=== PATIENT | female | born 1965 | race Caucasian/White ===

== ENCOUNTER → 2018-07-06 11:11 | Outpatient (CLI) | payer MEDICARE, SELFPAY ==
[2018-07-06 12:34] LABS: Alanine Aminotransferase 31 U/L (12-78); Albumin Level 3.8 gm/dL (3.4-5.0); Albumin/Globulin Ratio 1.1 (1.1-1.8); Alkaline Phosphatase 108 U/L (46-116); Anion Gap 14.4 mEq/L (5-15); Aspartate Amino Transferase 15 U/L (15-37); Bilirubin,Total 0.4 mg/dL (0.2-1.0); Blood Urea Nitrogen 16 mg/dL (7-18); Calcium 9.2 mg/dL (8.5-10.1); Carbon Dioxide 27 mmol/L (21.0-32.0); Chloride 101 mmol/L (98-107); Chol/HDL Ratio 3.3 (1-3.5); Cholesterol 248 mg/dL (140-200); Creatinine,Serum 0.86 mg/dL (0.55-1.02); Estimated Glomerular Filt Rate 69 ml/min (>60); GFR (African American) 83 ML/MIN (>60); Globulin 3.5 gm/dl (1.3-3.2); Glucose 105 mg/dL (74-106); HDL Cholesterol 75 mg/dL (29-89); LDL Cholesterol 132 mg/dL (0-130); Potassium 4.4 mmoL/L (3.5-5.1); Sodium 138 mmol/L (136-145); Total Protein,Serum 7.3 gm/dL (6.4-8.2); Triglycerides 204 mg/dL (30-200); VLDL Cholesterol 41 mg/dL (0-40)
== END ==
PROVIDERS: Visit Provider Nurse Practitioner Family
DX: Z00.00 Encounter for general adult medical examination without abnormal findings (principal)
CPT/HCPCS: 36415; 80053; 80061

== ENCOUNTER 2018-09-24 15:40 | Observation (INO) ==
--- NOTE | 2018-09-24 15:56 | Emergency Department Note ---
ED Disposition Clinical Impression: Acute appendicitis Qualifiers: Acute appendicitis type: with localized peritonitis Appendicitis gangrene presence: without gangrene Appendicitis perforation presence: without perforation Appendicitis abscess presence: without abscess Qualified Code(s): K35.30 - Acute appendicitis with localized peritonitis, without perforation or gangrene Disposition: Admitted as Observation Condition on Discharge: Fair Referrals: Zeny Rojo APRN [Primary Care Provider] - - Critical Care Critical Care Time: No Attestation: On , the high probability of a clinically significant, sudden or life threatening deterioration of the following system(s) required my full and direct attention, intervention and personal management. The time I documented below is in addition to time spent performing reported procedures but includes the following listed in this critical care notation. Medical Decision Making - Cain Inquiry Pt receiving controlled substance: Yes Cain was queried for this patient: Yes Reference #:: [id number] Risks and benefits of using a controlled substance: were not discussed with pt by me Comment: 17 rxs. last rxs 120 norco 09/10 and 360 gabapentin 09/15 Vital Signs: 09/24/18 15:44 09/24/18 16:10 09/24/18 16:30 Temperature 98.0 F Temperature Source Oral Pulse Rate [Right Radial] 112 H 87 84 Respiratory Rate 20 18 20 Blood Pressure [Right Radial Artery] 138/81 143/87 H 134/82 Blood Pressure Mean [Right Radial Artery] 100 105 99 Blood Pressure Source [Right Radial Artery] Automatic Cuff Automatic Cuff Au tomatic Cuff Blood Pressure Position [Right Radial Artery] Sitting Sitting Sitting 02 Sat by Pulse Oximetry 97 97 96 Oxygen Delivery Method Room Air Room Air Room Air 09/24/18 17:00 09/24/18 17:30 09/24/18 18:00 Temperature Temperature Source Pulse Rate [Right Radial] 91 H 79 88 Respiratory Rate 18 18 20 Blood Pressure [Right Radial Artery] 146/71 H 146/93 H 134/84 Blood Pressure Mean [Right Radial Artery] 96 110 100 Blood Pressure Source [Right Radial Artery] Automatic Cuff Automatic Cuff Automatic Cuff Blood Pressure Position [Right Radial Artery] Sitting Sitting Sitting 02 Sat by Pulse Oximetry 92 L 95 96 Oxygen Delivery Method Room Air Room Air Room Air - Lab Data Lab Results 09/24/18 15:57: WBC 13.2 H, RBC 4.82, Hgb 14.2, Hct 42.4, MCV 87.9, MCH 29.4, MCHC 33.5, RDW 13.2, Plt Count 304, MPV 6.9 L, Neut % (Auto) 85.6 H, Lymph % (Auto) 10.0, [place] % (Auto) 3.3, Eos % (Auto) 0.8, Baso % (Auto) 0.3, Neut # (Auto) 11.3 H, Lymph # (Auto) 1.3, [place] # (Auto) 0.4, Eos # (Auto) 0.1, Baso # (Auto) 0.0, Total Counted 100, Neutrophils % (Manual) 87 H, Lymphocytes % (Manual) 8 L, Monocytes % (Manual) 3, Eosinophils % (Manual) 2, Platelet Estimate Normal, RBC Morphology Normal 09/24/18 15:57: Sodium 137, Potassium 3.3 L, Chloride 98, Carbon Dioxide 27, Anion Gap 15.3 H, BUN 15, Creatinine 0.88, Estimated Creat Clear 93, Estimated GFR 67, Est GFR ( Amer) 81, Glucose 119 H, Calcium 9.6, Total Bilirubin 0.4, AST 19, ALT 36, Alkaline Phosphatase 128 H, Troponin I < 0.02, Total Protein 8.4 H, Albumin 4.0, Globulin 4.4 H, Albumin/Globulin Ratio 0.9 L 09/24/18 15:57: Lipase 91 09/24/18 15:59: Urine Color Yellow, Urine Appearance Clear, Urine pH 6.5, Ur Specific [place] 1.020, Urine Protein Negative, Urine Glucose (UA) Negative, Urine Ketones Negative, Urine Blood Negative, Urine Nitrate Negative, Urine Bilirubin Negative, Urine Urobilinogen 0.2, Ur Leukocyte Esterase Negative, Urine RBC None, Urine WBC Occasional, Ur Squamous Epith Cells Occasional, Urine Bacteria Trace Result diagrams: 09/24/18 15:57 09/24/18 15:57 Orders (Tests/Meds): ED MEDICATIONS Generic Name Dose Route Start Last Admin Trade Name Freq PRN Reason Stop Dose Admin Sodium Chloride 10 ml 09/24/18 15:49 Saline Flush 10ml Syringe IV 10/24/18 15:48 NEEDED PRN Maintain IV Site Discontinued Medications Generic Name Dose Route Start Last Admin Trade Name Freq PRN Reason Stop Dose Admin Famotidine 20 mg 09/24/18 16:46 09/24/18 16:50 Pepcid 20mg/2ml Vial IV 09/24/18 16:47 20 mg ONCE ONE Administration Ampicillin Sodium/Sulbactam 100 mls @ 200 mls/hr 09/24/18 18:30 Sodium 3 gm/ Sodium Chloride IV 09/24/18 18:31 ONCE ONE Protocol Ioversol 75 ml 09/24/18 17:26 09/24/18 17:27 Rad-Optiray 350 100ml Vial IV 09/24/18 17:27 75 ml ONCE ONE Administration Metoclopramide HCl 10 mg 09/24/18 16:46 09/24/18 16:50 Reglan 10mg/2ml Vial IVP 09/24/18 16:47 10 mg ONCE ONE Administration Morphine Sulfate 4 mg 09/24/18 16:46 09/24/18 16:50 Morphine 4mg/Ml Syringe IV 09/24/18 16:47 4 mg ONCE ONE Administration Ondansetron HCl 4 mg 09/24/18 16:46 09/24/18 16:50 Zofran 4mg/2ml Vial IV 09/24/18 16:47 4 mg ONCE ONE Administration Sodium Chloride 10 ml 09/24/18 17:26 09/24/18 17:27 Rad-Saline Flush 10ml Syringe IV 09/24/18 17:27 10 ml ONCE ONE Administration - CT Data CT Scan: Abdomen, Pelvis Time Received: 17:[address] Reviewed: Yes: I have viewed the radiologist's interpretation Findings Narrative: Acute appendicitis - ECG Data Tracing #1 EKG interpreted by Florentino Lowe MD: Rhythm: sinus Rate: 95 [place]: normal Ectopy: none Conduction: normal ST Segment Changes: none T Wave Changes: Nonspecific Q Waves: none No evidence of acute ischemia or injury Baseline artifact present, but I consider the EKG adequate for accurate interpretation. - Physician Consults Physician Consulted: Morgan Time: 18:04 Reason -: Surgical Eval/Care Comment/Response: Requests that the dye house supervisor call in the OR team. - Reevaluation(s) Time: 18:00 Reevaluation #1: Still complains of epigastric pain, but on reexamination she is much more tender in the right lower quadrant and epigastrium and has a positive Rovsing sign. General Adult HPI - General Stated complaint: stomach pains Time Seen by Provider: 09/24/18 15:56 - History of Present Illness HPI narrative: Constant mid epigastric pain since this morning. Made worse by eating. Last oral intake was at 2 PM, Triscuits, and orange "Cutie", some cheese. Pain made worse after eating. No radiation. Nausea, but no vomiting or diarrhea. No fever. No prior similar pain. No history of any abdominal surgeries. Nondrinker. She is not on any anti-inflammatories. Took some Gas-X without relief. - Related Data Home Medications Medication Instructions Recorded Confirmed Gabapentin 600 mg PO TID 09/24/18 09/24/18 Hydrocod/Acet 5/325 mg [[place] 1 tab PO NEEDED PRN 09/24/18 09/24/18 5/325mg tablet] Ropinirole HCl 1 mg PO HS 09/24/18 09/24/18 Allergies Allergy/AdvReac Type Severity Reaction Status Date / Time No Known Allergies Allergy Unverified 07/14/17 14:[address] [facility] History - Hepatitis A Screen Attestation statement:: This patient has been screened for Hepatitis A risk factors. I have reviewed the patient's past medical history: Yes ROS Obtained: Yes All systems reviewed & no additional complaints - Constitutional Constitutional: Denies fever(s) - Cardiovascular Cardiovascular: Denies chest pain - Respiratory Respiratory: No dyspnea - Gastrointestinal Gastrointestingal: Reports: abdominal pain, nausea. Denies: constipation, diarrhea, vomiting - Genitourinary Female Genitourinary: Denies difficulty voiding Physical Exam - General General appearance: alert, other (appears uncomfortable) - Head Head exam: atraumatic, normocephalic - Eye Eye exam: Present: normal appearance, PERRL, EOMI - ENT ENT exam: Present: mucous membranes moist - Neck Neck exam: Present: normal inspection, trachea midline - Chest Chest inspection: Present: normal inspection, symmetric chest wall rise - Respiratory Respiratory exam: Present: normal lung sounds bilaterally. Absent: respiratory distress - Cardiovascular Cardiovascular exam: Present: normal rhythm, tachycardia, normal heart sounds - Abdominal Exam Abdominal exam: Present: soft, tenderness. Absent: distention, guarding, rebound, rigidity Abdominal tenderness: Present: epigastrium - Extremities Exam Extremities exam: Present: normal inspection - Neurological Exam Neurological exam: Present: alert, oriented X3 - Psychiatric Psychiatric exam: Present: normal affect, normal mood - Skin Skin exam: Present: warm, dry
[2018-09-24 16:00] LABS: Microscopic, Urine URINE MICROSCOPIC (MICROSCOPIC)
[2018-09-24 16:02] LABS: Appearance,Urine CLEAR (Clear); Bilirubin,Urine Negative (Negative); Blood, Urine Negative (Negative); Color,Urine YELLOW (Yellow); Glucose,Urine (UA) Negative (Negative); Ketones,Urine Negative (Negative); Leukocyte Esterase,Urine Negative (Negative); PH,Urine 6.5 (5.0-8.5); Protein,Urine Negative (Negative); Urobilinogen,Urine 0.2 EU/dl (0.2)
[2018-09-24 16:06] LABS: Basophils % 0.3 % (0.1-2.0); Eosinophils # 0.1 K/mm3 (0.0-0.4); Eosinophils % 0.8 % (0.1-12.0); Hematocrit 42.4 % (37.0-47.0); Hemoglobin 14.2 g/dL (12.2-16.2); Lymphocytes # 1.3 K/mm3 (0.7-4.5); Mean Corpuscular HGB Conc 33.5 g/dL (31.8-35.4); Mean Corpuscular Hemoglobin 29.4 pg (27.0-31.2); Mean Corpuscular Volume 87.9 fl (81-99); Mean Platelet Volume 6.9 fl (7.4-10.4); Monocytes # 0.4 K/mm3 (0.1-1.0); Monocytes % 3.3 % (1.7-9.3); Neutrophils # 11.3 K/mm3 (1.8-7.8); Neutrophils % 85.6 % (37.0-80.0); Platelet Count 304 K/mm3 (142-424); Red Blood Count 4.82 M/mm3 (4.20-5.40); Red Cell Distribution Width 13.2 % (11.5-17.5); White Blood Count 13.2 K/mm3 (4.8-10.8)
[2018-09-24 16:25] LABS: Eosinophils % 2 % (0-3); Lymphocytes % 8 % (10-50); Monocytes % 3 % (2-9); Neutrophils % 87 % (42-76); RBC Morphology Normal; Total Cells Counted 100
[2018-09-24 16:26] LABS: WBC,Urine Occasional #/hpf (0-3)
[2018-09-24 16:27] LABS: Bacteria,Urine Trace /lpf; Squamous Epithelial Cell,Urine Occasional #/hpf (0-5)
[2018-09-24 16:30] LABS: Alanine Aminotransferase 36 U/L (12-78); Albumin/Globulin Ratio 0.9 (1.1-1.8); Alkaline Phosphatase 128 U/L (46-116); Anion Gap 15.3 mEq/L (5-15); Aspartate Amino Transferase 19 U/L (15-37); Bilirubin,Total 0.4 mg/dL (0.2-1.0); Blood Urea Nitrogen 15 mg/dL (7-18); Calcium 9.6 mg/dL (8.5-10.1); Carbon Dioxide 27 mmol/L (21.0-32.0); Chloride 98 mmol/L (98-107); Globulin 4.4 gm/dl (1.3-3.2); Glucose 119 mg/dL (74-106); Potassium 3.3 mmoL/L (3.5-5.1); Sodium 137 mmol/L (136-145); Total Protein,Serum 8.4 gm/dL (6.4-8.2)
--- NOTE | 2018-09-24 19:04 | Progress Note ---
[facility] Anesthesia Checklist - Patient Identification Patient Identification: Arm Band, Verbal (Name & ) - Structural Data Admitted From: Emergency Dept Planned Operative Procedure/s: Laparoscopic appendectomy Consent for Planned Operative Procedure(s) Verified: Yes Verified Documents: Surgical Consent, History and Physical - NPO Status Verified Time NPO: 00:00 - Chart Verification Results Verified: CBC, BMP - Additional verifications Anesthesia Reactions: No - Airway Assessment C-Spine Mobility Assessed: Yes TMJ Mobility Assessed: Yes Dentition: Good Dentition (Missing) - Neurological Assessment Level of Consciousness: Awake Hx Seizures: No Numbness or tingling in extremities: No - Anesthesia Plan Anesthesia Risk discussed: Yes Anesthesia Plan: Verified ASA Class: II (Emergent) Anesthesia Type: General [facility] History I have reviewed the patient's past medical history: Yes Medical History: Reports:: Anxiety, Depression, Hypertension Denies:: Diabetes Mellitus Type 1, Diabetes Mellitus Type 2, Seizures Other Medical History: Denies: Blood Transfusion Reaction Comment:: Obesity Laterality Cases: Right: Total Knee Replacement Other Surgeries: Yes: Other (Back sx x2) Amputation: No Fractures: No - *Social History Smoking Status: Never smoker Alcohol Intake: never *Occupational Status:: unemployed *Travel in the last 8 weeks: None - Psychiatric History Expresses thoughts of harming self/others: None Suicide Plan Description: No Plan Family Hx:: Other (NA)
--- NOTE | 2018-09-24 20:23 | Operative Note ---
Date of procedure: 09/24/18 Pre-op Diagnosis:: Appendicitis Post-op Diagnosis:: Suppurative appendicitis Procedure performed:: Laparoscopic appendectomy Surgeon:: Austin Mora MD [employer](s):: Linda Anesthesia: GETJenna Estimated blood loss (mL): 15 Operative findings:: Severe appendicitis with suppurative changes. No definitive perforation noted. Operative note:: After informed consent was obtained the patient was taken to the operating room and placed in the supine position. General anesthesia was induced and her abdomen was prepped and draped in a sterile fashion. After infiltration with local anesthetic an infraumbilical incision was made. A Veress needle was placed in position. The abdomen was insufflated. A 12 mm optical trocar was placed in position. Under direct visualization a 5 mm trocar was placed in the suprapubic position. An additional 5 mm trocar was placed in the left lower quadrant. The appendix was carefully elevated. Severe inflammatory changes were noted. The appendix was suppurative; however, no definitive perforation was noted. A window was made at the base of the appendix. Laparoscopic BRIDGET stapler was utilized to transect the appendix at the base. The mesoappendix was taken with harmonic wilman. The appendix was placed in a retrieval bag. It was removed through the infraumbilical trocar site. Cloudy fluid was evacuated from the pelvis and right lower quadrant. No obvious formed abscess was seen. The entire region was thoroughly irrigated. Fascia at the infraumbilical trocar site was reapproximated with interrupted 0 Ethibond. Pneumoperitoneum was released as the remaining trocars were removed. All wounds were irrigated and skin was closed with 4-0 Monocryl in a sub-particular fashion. Steri-Strips were applied. The patient's anesthetic agents were reversed and she was extubated prior to being taken to PACU. Condition: stable Disposition: PACU Specimens:: Appendix Complications:: No immediate
--- NOTE | 2018-09-24 20:37 | Progress Note ---
[facility] Anesthesia Record Part II Discharge Time: 21:05 Destination: Medical Surgical Department PACU nurse assessment reviewed?: Yes Patient Condition:: Good Anesthesia Complications:: None Swallowing reflex intact?: Yes Cyanosis?: No
--- NOTE | 2018-09-24 20:37 | Progress Note ---
[facility] Anesthesia Record Part I Intake, IV Amount: 500 Estimated blood loss (mL): 15 Urine output (mL): 0 Blood Products used (#): none Blood Pressure: 160/95 SaO2: 98 Pulse Rate: 115 Respiratory Rate: 14 Temperature: 97.7 F Patient is:: Awake, Stable Stable to PACU at:: 20:35
--- NOTE | 2018-09-25 06:28 | Progress Note ---
Subjective Patient reports: other (resting) Exam Vital signs and Labs for Last 24 Hours: Temp Pulse Resp BP Pulse Ox 98.4 F 84 18 118/69 95 09/25/18 03:55 09/25/18 03:55 09/25/18 03:55 09/25/18 03:55 09/25/18 03:55 Laboratory Results - last 24 hr 09/24/18 15:57: WBC 13.2 H, RBC 4.82, Hgb 14.2, Hct 42.4, MCV 87.9, MCH 29.4, MCHC 33.5, RDW 13.2, Plt Count 304, MPV 6.9 L, Neut % (Auto) 85.6 H, Lymph % ( Auto) 10.0, [place] % (Auto) 3.3, Eos % (Auto) 0.8, Baso % (Auto) 0.3, Neut # (Auto) 11.3 H, Lymph # (Auto) 1.3, [place] # (Auto) 0.4, Eos # (Auto) 0.1, Baso # (Auto) 0.0, Total Counted 100, Neutrophils % (Manual) 87 H, Lymphocytes % (Manual) 8 L, Monocytes % (Manual) 3, Eosinophils % (Manual) 2, Platelet Estimate Normal, RBC Morphology Normal 09/24/18 15:57: Sodium 137, Potassium 3.3 L, Chloride 98, Carbon Dioxide 27, Anion Gap 15.3 H, BUN 15, Creatinine 0.88, Estimated Creat Clear 93, Estimated GFR 67, Est GFR ( Amer) 81, Glucose 119 H, Calcium 9.6, Total Bilirubin 0.4, AST 19, ALT 36, Alkaline Phosphatase 128 H, Troponin I < 0.02, Total Protein 8.4 H, Albumin 4.0, Globulin 4.4 H, Albumin/Globulin Ratio 0.9 L 09/24/18 15:57: Lipase 91 09/24/18 15:59: Urine Color Yellow, Urine Appearance Clear, Urine pH 6.5, Ur Specific [place] 1.020, Urine Protein Negative, Urine Glucose (UA) Negative, Urine Ketones Negative, Urine Blood Negative, Urine Nitrate Negative, Urine Bilirubin Negative, Urine Urobilinogen 0.2, Ur Leukocyte Esterase Negative, Urine RBC None, Urine WBC Occasional, Ur Squamous Epith Cells Occasional, Urine Bacteria Trace 09/24/18 19:30: Urine Color Yellow, Urine Appearance Clear, Urine pH 6.0, Ur Specific [place] 1.010, Urine Protein Negative, Urine Glucose (UA) Negative, Urine Ketones Negative, Urine Blood Negative, Urine Nitrate Negative, Urine Bilirubin Negative, Urine Urobilinogen 0.2, Ur Leukocyte Esterase Negative, Urine RBC None, Urine WBC Occasional, Ur Squamous Epith Cells Occasional, Urine Bacteria Trace I & O for Last 24 hours: Intake & Output 09/22/18 09/23/18 09/24/18 09/25/18 11:59 11:59 11:59 11:59 Intake Total 740 / 740 Balance 740 / 740 Weight 184 lb 2 oz - Constitutional no acute distress - *Routine Respiratory Exam Absent: respiratory distress - *Routine Abdominal Exam Present: soft (dressing intact. no cellulitis.) Progress Note: A&P (1) Suppurative appendicitis Status: Acute Assessment and plan: Overall, doing well s/p laparoscopic appendectomy. Slowly advance diet Follow-up a.m. labs Increase ambulation Continue IV antibiotics Current Visit: Yes
[2018-09-25 07:35] LABS: Basophils % 0.1 % (0.1-2.0); Hematocrit 33.2 % (37.0-47.0); Lymphocytes # 0.6 K/mm3 (0.7-4.5); Lymphocytes % 8.3 % (10-50); Mean Corpuscular HGB Conc 32.9 g/dL (31.8-35.4); Mean Corpuscular Hemoglobin 29.2 pg (27.0-31.2); Mean Corpuscular Volume 88.9 fl (81-99); Mean Platelet Volume 7.4 fl (7.4-10.4); Monocytes # 0.2 K/mm3 (0.1-1.0); Monocytes % 2.8 % (1.7-9.3); Neutrophils # 6.6 K/mm3 (1.8-7.8); Neutrophils % 88.8 % (37.0-80.0); Platelet Count 207 K/mm3 (142-424); Red Blood Count 3.73 M/mm3 (4.20-5.40); Red Cell Distribution Width 13.1 % (11.5-17.5); White Blood Count 7.4 K/mm3 (4.8-10.8)
[2018-09-25 07:37] LABS: Anion Gap 11.8 mEq/L (5-15); Calcium 8.7 mg/dL (8.5-10.1); Potassium 3.8 mmoL/L (3.5-5.1)
[2018-09-25 07:44] LABS: Hemoglobin 10.9 g/dL (12.2-16.2)
--- NOTE | 2018-09-25 09:08 | Pharmacy Consult Notes ---
[facility] Pharmacy VTE Monitoring - Patient Demographics Admission date: 09/24/18 Report Date: 09/25/18 Time: 09:08 Allergies/Adverse Reactions: Patient Allergies amoxicillin [From Augmentin] Allergy (Mild, Verified 09/25/18 04:44) Rash clavulanic acid [From Augmentin] Allergy (Mild, Verified 09/25/18 04:44) Rash Height: 1.63 m Weight: 83.518 kg Patient Problems: Current Active Problems Acute appendicitis (Acute) Suppurative appendicitis (Acute) - VTE Risk Labs: VTE Related Lab Results Hgb 10.9 g/dL (12.2-16.2) L D 09/25/18 06:50 Hct 33.2 % (37.0-47.0) L 09/25/18 06:50 Plt Count 207 K/mm3 (142-424) D 09/25/18 06:50 BUN 10 mg/dL (7-18) D 09/25/18 06:50 Creatinine 0.83 mg/dL (0.55-1.02) 09/25/18 06:50 Estimated Creat Clear 101 mL/min (50-200) 09/25/18 06:50 Was VTE Risk Assessment Performed: Yes VTE Score: 4 VTE Risk Level: Low Risk - Prophylaxis VTE Prophylaxis Ordered?: Yes Types of VTE Prophylaxis: IPCS Thigh High Location of Applied Device: Bilateral Lower Extremeties
[2018-09-25 10:10] LABS: Lymphocytes % 6 % (10-50); Monocytes % 1 % (2-9); Neutrophils % 93 % (42-76); RBC Morphology Normal; Total Cells Counted 100
[2018-09-26 07:10] LABS: Basophils % 0.4 % (0.1-2.0); Eosinophils % 0.8 % (0.1-12.0); Hematocrit 31.2 % (37.0-47.0); Hemoglobin 10.2 g/dL (12.2-16.2); Lymphocytes # 1.9 K/mm3 (0.7-4.5); Lymphocytes % 42.8 % (10-50); Mean Corpuscular HGB Conc 32.5 g/dL (31.8-35.4); Mean Corpuscular Hemoglobin 29.3 pg (27.0-31.2); Mean Corpuscular Volume 90.1 fl (81-99); Mean Platelet Volume 7.4 fl (7.4-10.4); Monocytes # 0.2 K/mm3 (0.1-1.0); Monocytes % 5.3 % (1.7-9.3); Neutrophils # 2.2 K/mm3 (1.8-7.8); Neutrophils % 50.6 % (37.0-80.0); Platelet Count 211 K/mm3 (142-424); Red Blood Count 3.47 M/mm3 (4.20-5.40); Red Cell Distribution Width 13.4 % (11.5-17.5); White Blood Count 4.4 K/mm3 (4.8-10.8)
--- NOTE | 2018-09-26 08:37 | Progress Note ---
Subjective Patient reports: feels better Exam Vital signs and Labs for Last 24 Hours: Temp Pulse Resp BP Pulse Ox 98.8 F 96 H 19 140/88 96 09/26/18 08:00 09/26/18 08:00 09/26/18 08:00 09/26/18 08:00 09/26/18 08:00 Laboratory Results - last 24 hr 09/25/18 06:50: Total Counted 100, Neutrophils % (Manual) 93 H, Lymphocytes % (Manual) 6 L, Monocytes % (Manual) 1 L, Platelet Estimate Normal, RBC Morphology Normal 09/26/18 06:40: WBC 4.4 L D, RBC 3.47 L, Hgb 10.2 L, Hct 31.2 L, MCV 90.1, MCH 29.3, MCHC 32.5, RDW 13.4, Plt Count 211, MPV 7.4, Neut % (Auto) 50.6, Lymph % (Auto) 42.8, [place] % (Auto) 5.3, Eos % (Auto) 0.8, Baso % (Auto) 0.4, Neut # (Auto) 2.2, Lymph # (Auto) 1.9, [place] # (Auto) 0.2, Eos # (Auto) 0.0, Baso # (Auto) 0.0 I & O for Last 24 hours: Intake & Output 09/23/18 09/24/18 09/25/18 09/26/18 11:59 11:59 11:59 11:59 Intake Total 2158 / 2158 2536 / 2536 Balance 2158 / 2158 2536 / 2536 Weight 184 lb 2 oz 185 lb 2 oz - Constitutional no acute distress - *Routine Respiratory Exam Absent: respiratory distress - *Routine Cardiovascular Exam Present: RRR - *Routine Abdominal Exam Present: soft Comments: dressing dry. no erythema. Progress Note: A&P (1) Suppurative appendicitis Status: Acute Assessment and plan: Overall, doing very well postoperative day 2 status post laparoscopic appendectomy. Discharge home with close follow-up Completion of course of antibiotics at home secondary to suppuration. Current Visit: Yes
--- NOTE | 2018-09-26 08:46 | Discharge Summary ---
General - General Admission date:: 09/24/18 Discharge date: 09/26/18 HPI HPI: This is a 53-year-old female who presented to the emergency department with central abdominal pain with migration to the right lower quadrant. A CT scan revealed changes consistent with appendicitis and the surgical service was consulted. Hospital Course Hospital Course: The patient underwent laparoscopic appendectomy. Please see operative report for detail. Postoperatively, she was maintained on Zosyn secondary to suppurative changes. She convalesced well. She remained afebrile with stable and normal vital signs. Her leukocytosis resolved and she was deemed appropriate for discharge on postoperative day 2. Objective Vital signs: Temp Pulse Resp BP Pulse Ox 98.8 F 96 H 19 140/88 96 09/26/18 08:00 09/26/18 08:00 09/26/18 08:00 09/26/18 08:00 09/26/18 08:00 no acute distress - *Routine HEENT Exam Head: Present: normocephalic, atraumatic - *Routine Neck Exam Present: full ROM - Routine Chest/Breast/Axilla Exam Chest wall: Absent: tenderness - *Routine Respiratory Exam Absent: respiratory distress - *Routine Cardiovascular Exam Present: RRR - *Routine Abdominal Exam Present: soft, tenderness Comments: RLQ - *Routine Extremities Exam Present: full ROM - Routine Back/Spine/Pelvis Exam Back/Spine: Present: full ROM - *Routine Skin Exam Present: intact - *Routine Neurological Exam Present: alert, oriented X3 - Routine Psychiatric Exam Present: normal affect Results Labs on day of discharge: Labs from last 24 hours 09/26/18 09/25/18 06:40 06:50 WBC 4.4 L D RBC 3.47 L Hgb 10.2 L Hct 31.2 L MCV 90.1 MCH 29.3 MCHC 32.5 RDW 13.4 Plt Count 211 MPV 7.4 Neut % (Auto) 50.6 Lymph % (Auto) 42.8 [place] % (Auto) 5.3 Eos % (Auto) 0.8 Baso % (Auto) 0.4 Neut # (Auto) 2.2 Lymph # (Auto) 1.9 [place] # (Auto) 0.2 Eos # (Auto) 0.0 Baso # (Auto) 0.0 Total Counted 100 Neutrophils % (Manual) 93 H Lymphocytes % (Manual) 6 L Monocytes % (Manual) 1 L Platelet Estimate Normal RBC Morphology Normal DS: Diagnosis - Discharge Diagnosis (1) Suppurative appendicitis Status: Acute Discharge Plan - Patient Discharge Instructions ACTIVITY: No heavy lifting DIET: advance to your usual diet Patient Instructions: DI for an Appendectomy, DI for Surgical Site Infection, Appendectomy -- Laparoscopic Surgery - Follow up Plan Follow up with: Zeny Rojo APRN [Primary Care Provider] - Austin Mora MD [Staff Physician] - 2 weeks Disposition: Home, Self-Nursing Home Medications: Home Medications Medication Instructions Recorded Confirmed Type Amlodipine Besylate [Amlodipine 5 mg PO DAILY 09/24/18 09/25/18 History 5mg tab] Gabapentin 600 mg PO QID 09/24/18 09/25/18 History Hydrocod/Acet 5/325 mg [[place] 1 tab PO Q6HP PRN 09/24/18 09/25/18 History 5/325mg tablet] Ropinirole HCl 1 mg PO BID 09/24/18 09/25/18 History Atorvastatin Calcium [Lipitor 10mg 10 mg PO DAILY 09/25/18 09/25/18 History Tablet] Buspirone HCl [Buspar 5mg tablet] 5 mg PO TIDP PRN 09/25/18 09/25/18 History Cyclobenzaprine HCl [Flexeril 10mg 10 mg PO Q8HP PRN 09/25/18 09/25/18 History tablet] Losartan/Hydrochlorothiazide 1 tab PO DAILY 09/25/18 09/25/18 History [Losartan-Hctz 100-12.5 mg Tab] Venlafaxine HCl [Venlafaxine HCl 150 mg PO DAILY 09/25/18 09/25/18 History ER] Hydrocod/Acet 5/325 mg [[place] 1 tab PO Q6HP PRN #9 tab 09/26/18 Rx 5/325mg tablet] levoFLOXacin [Levaquin 500mg 500 mg PO DAILY #6 tab 09/26/18 Rx tab] metroNIDAZOLE [Flagyl 500mg 500 mg PO TID #18 tab 09/26/18 Rx Tablet] Prescriptions/Medication Reconciliation: Continue Hydrocod/Acet 5/325 mg [[place] 5/325mg tablet] 1 tab PO Q6HP PRN PRN Reason: pain Gabapentin 600 mg PO QID Amlodipine Besylate [Amlodipine 5mg tab] 5 mg PO DAILY Buspirone HCl [Buspar 5mg tablet] 5 mg PO TIDP PRN PRN Reason: Anxiety Cyclobenzaprine HCl [Flexeril 10mg tablet] 10 mg PO Q8HP PRN PRN Reason: Muscle Spasm Atorvastatin Calcium [Lipitor 10mg Tablet] 10 mg PO DAILY Losartan/Hydrochlorothiazide [Losartan-Hctz 100-12.5 mg Tab] 1 tab PO DAILY Venlafaxine HCl [Venlafaxine HCl ER] 150 mg PO DAILY Ropinirole HCl 1 mg PO BID
== END 2018-09-26 10:35 | disposition home or self-care (01) ==
LOC: ER 15:40 → 2ND 18:34 → SDC 18:34 → 2ND 19:00
PROVIDERS: ADMIT Surgery; ATTEND Surgery
DX: K35.890 Other acute appendicitis without perforation or gangrene
CPT/HCPCS: 36415; 74177; 80048; 80053; 81001; 83690; 84484; 85007; 85025; 93005; 96374; 96375; 99285; G0378; J2405; J2543; J2710; Q9967

== ENCOUNTER → 2019-04-15 09:44 | Outpatient (CLI) | payer MEDICARE, SELFPAY ==
[2019-04-15 11:19] LABS: Alanine Aminotransferase 26 U/L (12-78); Albumin Level 3.7 gm/dL (3.4-5.0); Alkaline Phosphatase 106 U/L (46-116); Aspartate Amino Transferase 19 U/L (15-37); Bilirubin,Direct 0.1 mg/dL (0.0-0.2); Bilirubin,Indirect 0.2 mg/dL (0.0-0.9); Bilirubin,Total 0.3 mg/dL (0.2-1.0); Chol/HDL Ratio 2.9 (1-3.5); Cholesterol 199 mg/dL (140-200); HDL Cholesterol 69 mg/dL (29-89); LDL Cholesterol 83 mg/dL (0-130); Total Protein,Serum 7.2 gm/dL (6.4-8.2); Triglycerides 235 mg/dL (30-200); VLDL Cholesterol 47 mg/dL (0-40)
== END ==
PROVIDERS: Visit Provider Nurse Practitioner Family
DX: E78.2 Mixed hyperlipidemia (principal)
CPT/HCPCS: 36415; 80061; 80076

== ENCOUNTER 2020-04-08 13:26 | Emergency (ER) | payer MEDICARE, SELFPAY ==
[2020-04-08 13:42] VITALS: BP 93/65; PULSE 120; RESP 20; O2SAT 98; BMI 30.9
--- NOTE | 2020-04-08 13:50 | HMH.EDEYEP ---
ED Disposition Clinical Impression: Corneal abrasion Qualifiers: Laterality: right Disposition: Home, Self-Care Condition on Discharge: Good Referrals: Diaz Moon MD [Primary Care Provider] - - Critical Care Critical Care Time: No Attestation: On , the high probability of a clinically significant, sudden or life threatening deterioration of the following system(s) required my full and direct attention, intervention and personal management. The time I documented below is in addition to time spent performing reported procedures but includes the following listed in this critical care notation. Medical Decision Making - Medical Records Medical records reviewed: Yes: I reviewed the patient's medical records. - Cain Inquiry Pt receiving controlled substance: No Vital Signs: 04/08/20 13:42 Pulse Rate [Radial] 120 H Respiratory Rate 20 Blood Pressure [Right Arm] 93/65 L Blood Pressure Mean [Right Arm] 74 Blood Pressure Source [Right Arm] Automatic Cuff Blood Pressure Position [Right Arm] Sitting 02 Sat by Pulse Oximetry 98 Oxygen Delivery Method Room Air Eye Problem HPI - General Chief complaint: Eye Problems Stated complaint: [id number] eye pain @ home Time Seen by Provider: 04/08/20 13:45 Mode of Arrival: Ambulatory Source of Information: Patient Limitations: No Limitations Description of Symptoms (Recalled from ER Triage Doc. by RN): Right eye pain since thursday. - History of Present Illness HPI Narrative: This is a 54-year-old female that presents the emergency department today with eye redness and pain. Ongoing x2 days. Patient first noticed this while cooking and salt hanging in the kitchen. No truly noted injury at that time. However pain has progressed. No significant discharge. Pain is burning and constant. Mild photophobia. - Related Data Home Medications Medication Instructions Recorded Confirmed Amlodipine Besylate [Amlodipine 5 mg PO DAILY 09/24/18 10/12/18 5mg tab] Gabapentin 600 mg PO QID 09/24/18 10/12/18 Ropinirole HCl 1 mg PO BID 09/24/18 10/12/18 Atorvastatin Calcium [Lipitor 10mg 10 mg PO DAILY 09/25/18 10/12/18 Tablet] Buspirone HCl [Buspar 5mg tablet] 5 mg PO TIDP PRN 09/25/18 10/12/18 Cyclobenzaprine HCl [Flexeril 10mg 10 mg PO Q8HP PRN 09/25/18 10/12/18 tablet] Losartan/Hydrochlorothiazide 1 tab PO DAILY 09/25/18 10/12/18 [Losartan-Hctz 100-12.5 mg Tab] Venlafaxine HCl [Venlafaxine HCl 150 mg PO DAILY 09/25/18 10/12/18 ER] Previous Rx's Medication Instructions Recorded Hydrocod/Acet 5/325 mg [[place] 1 tab PO Q6HP PRN #9 tab 09/26/18 5/325mg tablet] levoFLOXacin [Levaquin 500mg 500 mg PO DAILY #6 tab 09/26/18 tab] metroNIDAZOLE [Flagyl 500mg 500 mg PO TID #18 tab 09/26/18 Tablet] Allergies Allergy/AdvReac Type Severity Reaction Status Date / Time amoxicillin [From Augmentin] Allergy Mild Rash Verified 10/12/18 09:19 clavulanic acid Allergy Mild Rash Verified 10/12/18 09:19 [From Augmentin] [facility] History - Hepatitis A Screen Drug use history?: No High risk sexual behaviors?: No History of sexually transmitted infection?: No Currently employed?: No Childcare worker?: No Do you have indoor plumbing?: Yes Do you have electricity?: Yes Attestation statement:: This patient has been screened for Hepatitis A risk factors. I have reviewed the patient's past medical history: Yes Medical History: Reports:: Anxiety, Depression, Hyperlipidemia, Hypertension Denies:: Cancer, Diabetes Mellitus Type 1, Diabetes Mellitus Type 2, MRSA, Seizures Other Medical History: Denies: Blood Transfusion Reaction Comment: Obesity Other Surgeries: Yes: Appendectomy, Other Amputation: No Fractures: No - Social History Smoking Status: Never smoker Alcohol Intake: never Substance Use Type: denies use Occupational Status: other Housing: house Household Members: spouse - Psychiatric History Pschychiatric
[2020-04-08 13:53] VITALS: BP 93/65; PULSE 114; RESP 20; O2SAT 97
[2020-04-08 14:06] VITALS: BP 93/65; PULSE 114; RESP 20; TEMP 36.8; O2SAT 97
== END 2020-04-08 14:30 | disposition home or self-care (01) ==
LOC: ER 14:28
PROVIDERS: Emergency Provider Emergency Medicine; PCP Internal Medicine Adolescent Medicine
DX: S05.01XA Injury of conjunctiva and corneal abrasion without foreign body, right eye, initial encounter (principal); I10 Essential (primary) hypertension; E78.5 Hyperlipidemia, unspecified; F41.8 Other specified anxiety disorders
CPT/HCPCS: 99282

== ENCOUNTER → 2021-03-14 12:04 | Outpatient (CLI) | payer MEDICARE, SELFPAY ==
--- NOTE | 2021-03-14 12:14 | XR_ITS ---
PROCEDURE: XR HIP RT 2-3V W/PELVIS CLINICAL INDICATION: RT HIP PAIN COMPARISON: CR [id number] HIP RT 2-3V W/PELVIS IF PERFOR from 03/06/2016 FINDINGS: Moderate osteoarthritic changes are present involving the right hip with loss of joint space osteosclerosis and osteophyte formation. These findings have progressed since 03/06/2016. No fracture or dislocation. An AP view of the pelvis shows mild osteoarthritis of the left hip. 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
== END ==
PROVIDERS: PCP Nurse Practitioner Family; Visit Provider Nurse Practitioner Family
DX: M25.551 Pain in right hip (principal)
CPT/HCPCS: 73502

== ENCOUNTER → 2021-04-30 09:59 | Outpatient (CLI) | payer MEDICARE, SELFPAY | PROVIDERS: PCP Internal Medicine Adolescent Medicine; Visit Provider Nurse Practitioner | DX: Z20.822 Contact with and (suspected) exposure to COVID-19 (principal) | CPT/HCPCS: C9803; U0003; U0005 ==

== ENCOUNTER 2023-09-17 10:00 | Outpatient (RCR) | payer MEDICARE, SELFPAY | END 2023-09-17 11:00 | disposition home or self-care (01) | LOC: PT 10:00 | PROVIDERS: PCP Internal Medicine Adolescent Medicine; Visit Provider Orthopaedic Surgery | DX: M25.562 Pain in left knee (principal); Z96.652 Presence of left artificial knee joint | CPT/HCPCS: 97014; 97016; 97110; 97140; 97163; 97530; G0283 ==

== ENCOUNTER 2024-02-12 18:53 | Emergency (ER) | payer MEDICARE, SELFPAY ==
[2024-02-12 19:10] VITALS: BP 186/116; PULSE 98; RESP 18; TEMP 36.9; O2SAT 99; BMI 28.3
--- NOTE | 2024-02-12 19:15 | CT_ITS ---
PROCEDURE INFORMATION: Exam: CT Abdomen And Pelvis Without Contrast Exam date and time: 02/12/2024 7:22 PM Age: 58 years old Clinical indication: Abdominal pain; Flank; Left; Additional info: Left flank/llq abd pain TECHNIQUE: Imaging protocol: Computed tomography of the abdomen and pelvis without contrast. Radiation optimization: All CT scans at this facility use at least one of these dose optimization techniques: automated exposure control; mA and/or kV adjustment per patient size (includes targeted exams where dose is matched to clinical indication); or iterative reconstruction. COMPARISON: ABDPELW CT abdomen pelvis w con 09/24/2018 5:13 PM FINDINGS: Lungs: The visualized lung bases are clear. Pleural spaces: There are no pleural effusions. Heart: The visualized portions of the heart are unremarkable. There is no evidence of significant pericardial fluid collections. Liver: Evaluation of the liver is limited without contrast but the liver is within normal limits for this noncontrast study. The liver is at the upper limits of normal measuring 17.8 cm in CC dimension. Gallbladder and biliary ducts: The gallbladder is normal. Pancreas: Noncontrast images of the pancreas are within range of normal. Spleen: The spleen demonstrates punctate calcifications, consistent with remote granulomatous organism exposure. Adrenal glands: The adrenal glands are normal. Kidneys and ureters: Previously described left superior renal cyst is not as well seen on current exam due to the lack of intravenous contrast but is likely stable. There is a tiny nonobstructing superior left nephrolith. There may be a 2nd adjacent tiny nonobstructing nephrolith. No hydronephrosis or hydroureter. No definite ureter stone disease. There is also likely a tiny nephrolith involving the superior right kidney best seen on series 1001, image 51. Noncontrast images of the kidneys are otherwise within range of normal. Stomach and bowel: The stomach is normal. Lack of gastrointestinal contrast limits evaluation of bowel. Unopacified loops of small bowel within range of normal. Postoperative changes are suggested involving the cecum suggestive of appendectomy. The colon is normal. The duodenum appears normal. Appendix: See Stomach and bowel finding. Intraperitoneal space: No evidence of intraperitoneal free air. There is no evidence of free intraperitoneal or pelvic fluid. Vasculature: There are a few benign phleboliths in the pelvis. No aneurysm. Lymph nodes: There is no evidence of pathologic adenopathy. Urinary bladder: The bladder is decompressed. Reproductive: The uterus is normal. No adnexal cysts or masses are identified. Bones/joints: There has been a right total hip arthroplasty. Beam hardening artifact limits evaluation of adjacent structures. The thoracolumbar spine demonstrates moderate degenerative changes at multiple levels. There is marked central canal stenosis at the L4-L5 level due to a combination of diffuse bar/disc, endplate marginal osteophytes and hypertrophic facet degenerative arthropathy. There is marked bilateral neural foraminal narrowing at this level. There is a small collection of air just above the intervertebral disc space in the right parasagittal location which may reflect a small component of vacuum disc extrusion. Moderate to marked central canal stenosis is also present at L3-L4 due to a combination of diffuse annular bulge, marginal osteophytes and hypertrophic facet degenerative arthropathy. Soft tissues: No significant soft tissue edema. Other findings: Evaluation is limited by the lack of intravenous and gastrointestinal contrast. IMPRESSION: A few tiny bilateral nephroliths without hydronephrosis, hydroureter or ureteric stone disease. Marked central canal stenosis at the L4-L5 level with marked bilateral neural foraminal narrowing as described above. Moderate to marked central canal stenosis at the L3-L4 level.
--- NOTE | 2024-02-12 19:17 | HMH.EDGENADL ---
Discharge Plan Disposition Patient Disposition: Home, Self-Care Prescriptions Prescriptions: New cyclobenzaprine 10 mg tablet 10 mg PO TID PRN (Reason: muscle spasm) 5 Days Qty: 15 0RF ibuprofen 800 mg tablet 800 mg PO TID PRN (Reason: pain) 7 Days Qty: 20 0RF No Action gabapentin 600 MG tablet 600 mg PO QID ropinirole 1 MG tablet 1 mg PO BID amlodipine 5 MG tablet 5 mg PO DAILY buspirone 5 MG tablet 5 mg PO TIDP PRN (Reason: Anxiety) cyclobenzaprine 10 MG tablet 10 mg PO Q8HP PRN (Reason: Muscle Spasm) atorvastatin 10 MG tablet 10 mg PO DAILY venlafaxine 150 MG capsule,extended release 24hr 150 mg PO DAILY losartan-hydrochlorothiazide 100-12.5MG tablet 1 tab PO DAILY hydrocodone-acetaminophen 1 TAB tablet 1 tab PO Q6HP PRN (Reason: pain) Qty: 9 0RF Referrals Follow up/Referrals: Zeny Rojo APRN [Primary Care Provider] - See instructions Activity Restrictions/Add. Instructions Additional Instructions/Restrictions: As discussed no definitive explanation for your left flank/left abdominal pain today. There remains some diagnostic uncertainty. Please take your anti-inflammatory medication your muscle laxer return with any significant worsening of your symptoms. You are aware of the spinal stenosis incidental findings on your CT scan today you may continue to follow-up with your spine surgeons but I do not believe those are the cause of your symptoms today. No definitive intra-abdominal emergency today. Clinical Impressions Clinical Impression: Acute left flank pain Instructions Patient Instructions: DI for Acute Abdominal Pain Discharge ED Provider: Baljit Hogan General Adult [facility] General Chief complaint: Abdominal Pain Stated complaint: abd pain/back pain Time Seen by Provider: 02/12/24 19:10 Mode of Arrival: Ambulatory Source of Information: Patient and Spouse Limitations: No Limitations Description of Symptoms (Recalled from ER Triage Doc. by RN): pt states she was having L sided mid back pain that has now moved into her LUQ. pt states the pain is 10/10, constant and is a ache. pt denies N/V/D or urinary symptoms. pts last normal BM was this morning. pt last PO intake was yogurt around 1630. pt states the pain slight improves when she stands and applies pressure to her LUQ. pt reports she has taken a total of 1400 mg ibuprofen throughout the day and has taken goodie powder. History of Present Illness HPI narrative: Patient is a previously healthy 58-year-old female presenting today with sudden left back and left lower quadrant abdominal pain. States she initially thought it was just back pain but then it started radiating around into the left side of her abdomen. No history of diverticulitis or any type of abdominal pathology in the past. No nausea and vomiting associated with this. Had no preceding constipation diarrhea fevers chills dysuria frequency urgency blood in her urine etc. No history of kidney stones. States the pain is severe at times but has been constant and slightly alleviating itself at times. Is having a hard time being comfortable at the moment. Related Data Home Medications Medication Instructions Recorded Confirmed amlodipine 5 mg tablet 5 mg PO DAILY High blood pressure 09/24/18 01/09/21 gabapentin 600 mg tablet 600 mg PO QID Pain 09/24/18 01/09/21 ropinirole 1 mg tablet 1 mg PO BID RLS 09/24/18 01/09/21 atorvastatin 10 mg tablet 10 mg PO DAILY Cholesterol 09/25/18 01/09/21 buspirone 5 mg tablet 5 mg PO TIDP PRN Anxiety 09/25/18 01/09/21 cyclobenzaprine 10 mg tablet 10 mg PO Q8HP PRN Muscle Spasm 09/25/18 01/09/21 losartan 100 1 tab PO DAILY High blood pressure 09/25/18 01/09/21 mg-hydrochlorothiazide 12.5 mg tablet venlafaxine 150 mg 150 mg PO DAILY DEPRESSION/MOOD 09/25/18 01/09/21 capsule,extended release 24 hr Previous Rx's Medication Instructions Recorded hydrocodone 5 mg-acetaminophen 325 1 tab PO Q6HP PRN pain #9 tabs 09/26/18 mg tablet cyclobenzaprine 10 mg tablet 10 mg PO TID PRN muscle spasm 5 02/12/24 days #15 tabs ibuprofen 800 mg tablet 800 mg PO TID PRN pain 7 days #20 02/12/24 tabs Allergies Allergy/AdvReac Type Severity Reaction Status Date / Time amoxicillin [From Augmentin] Allergy Mild Rash Verified 02/12/24 19:18 clavulanic acid Allergy Mild Rash Verified 02/12/24 19:18 [From Augmentin] [facility] Disclaimer: The information contained in this section may have been updated after the patient was seen, as this information can be updated by other users. Social History (Updated 02/12/24 @ 19:19 by Farnaz Pittman RN) Smoking Status: Never smoker alcohol intake: current substance use type: denies use current occupational status: other Travel in the last 8 weeks: Inside the [place] household members: spouse housing: house caffeine: Yes ROS Obtained: Yes All systems reviewed & no additional complaints except as documented Physical Exam General General appearance: in distress (Patient appears to be very uncomfortable having a hard time finding a position of comfort) Respiratory Respiratory exam: Present normal lung sounds bilaterally; Absent respiratory distress Cardiovascular Cardiovascular exam: Present regular rate and normal rhythm Abdominal Exam Abdominal exam: Present soft and tenderness (With deep palpation there is some tenderness in the left lower quadrant otherwise no rebound or guarding); Absent distention Back Exam Back exam: Absent CVA tenderness (R) or CVA tenderness (L) Neurological Exam Neurological exam: Present alert and oriented X3 Medical Decision Making Cain Inquiry Pt receiving controlled substance: No Vital Signs: 02/12/24 19:10 Temperature 98.5 F Temperature Source Oral Pulse Rate [Left] 98 H Respiratory Rate 18 Blood Pressure [Right Arm] 186/116 H Blood Pressure Mean [Right Arm] 139 Blood Pressure Source [Right Arm] Automatic Cuff Blood Pressure Position [Right Arm] Sitting 02 Sat by Pulse Oximetry 99 Oxygen Delivery Method Room Air Lab Data Lab results reviewed: Yes I reviewed the patient's lab results. Lab Results 02/12/24 18:57: Urine Color Yellow, Urine Appearance Clear, Urine pH 6.0, Ur Specific [place] >= 1.030, Urine Protein Trace, Urine Glucose (UA) Negative, Urine Ketones Negative, Urine Blood Negative, Urine Nitrate Negative, Urine Bilirubin Negative, Urine Urobilinogen 0.2, Ur Leukocyte Esterase Trace, Urine RBC Occasional, Urine WBC Occasional, Ur Squamous Epith Cells 3-5, Urine Bacteria None 02/12/24 19:07: WBC 9.0, RBC 4.36, Hgb 13.5, Hct 40.3, MCV 92.6, MCH 31.0, MCHC 33.5, RDW 13.7, Plt Count 317, MPV 7.9, Neut % (Auto) 68.4, Lymph % (Auto) 25.0, [place] % (Auto) 4.3, Eos % (Auto) 1.5, Baso % (Auto) 0.8, Neut # (Auto) 6.2, Lymph # (Auto) 2.2, [place] # (Auto) 0.4, Eos # (Auto) 0.1, Baso # (Auto) 0.1, Sodium 138, Potassium 3.8, Chloride 103, Carbon Dioxide 28, Anion Gap 10.8, BUN 26 H, Creatinine 1.00, Estimated Creat Clear 71, Estimated GFR 57 L, Est GFR ( Amer) 68, Glucose 120 H, Calcium 9.5, Total Bilirubin 0.5, AST 31, ALT 21, Alkaline Phosphatase 125, Total Protein 7.9, Albumin 4.4, Globulin 3.5 H, Albumin/Globulin Ratio 1.3 02/12/24 19:07 02/12/24 19:07 Orders (Tests/Meds): ED MEDICATIONS Discontinued Medications Generic Name Dose Route Start Last Admin Trade Name Freq PRN Reason Stop Dose Admin Lactated Ringer's 1,000 mls @ 999 mls/hr 02/12/24 19:15 02/12/24 19:43 Lactated Ringer's 1000 Ml Bag IV 02/12/24 20:15 999 mls/hr .Q1H1M JONATHAN Administration Ketorolac Tromethamine 15 mg 02/12/24 19:15 02/12/24 19:43 Ketorolac 30mg/Ml Vial IV 02/12/24 19:16 15 mg ONCE ONE Administration Morphine Sulfate 4 mg 02/12/24 19:15 02/12/24 19:44 Morphine 4mg/Ml Syringe IV 02/12/24 19:16 4 mg ONCE ONE Administration Ondansetron HCl 4 mg 02/12/24 19:15 02/12/24 19:44 Ondansetron 4mg/2ml Vial IV 02/12/24 19:16 4 mg ONCE ONE Administration ORDERS Category Date Time Status CT abdomen pelvis wo con Stat Cat Scan 02/12/24 19:15 Completed CBC w/Auto Diff [Complete Blood Count Auto Diff] Stat Lab 02/12/24 19:07 Completed CMP [Comprehensive Metabolic Panel] Stat Lab 02/12/24 19:07 Completed UA [Urinalysis and Microscopic] Stat Lab 02/12/24 18:57 Completed Medical Decision Narrative: 58-year-old female with sudden left flank/left abdominal pain. Differential includes perforated viscus, bowel obstruction, kidney stone etc. I favor a kidney stone given the fact that she had left flank pain rating to her left groin and she largely has no significant tenderness. Will get a noncontrasted CT scan administer IV fluids pain medicine nausea medicine and will reassess. Labs also pending Reassessment 9:03 PM labs unremarkable specifically no evidence of any blood in her urine or other significant laboratory pathology. CT scan was performed to person interpreted shows no specific intra-abdominal abnormalities. There are some calcifications in the lower areas of the pelvis which may represent a nonobstructing kidney stone but there is no blood in her urine there is no hydronephrosis or hydroureter these are unlikely to be within the collecting system. There is no other explanation on CT scan of patient's symptoms. On reassessment patient still in significant discomfort. I had a very long discussion with her and her at the bedside and told her that we did a noncontrasted CT scan at this point without a definitive answer specifically no evidence of endorgan pathology for kidney stone, perforated viscus etc. there remains pathology that I might see if I were to put her back to the CT scan with contrast or to get a CT angio such as renal infarction mesenteric ischemia aortic dissection etc. I believe that those things are unlikely as her pain at this point seems to have migrated back to her back and is localized in that region most likely this is a musculoskeletal strain. However her pain seems to be out of proportion to that. I encouraged her to stay in to get the CT but she states she would like to go home and try anti-inflammatory medication muscle laxer's and that she will return with any significant worsening of her symptoms. She understands that there is diagnostic uncertainty and specifically that there are still conditions that are life-threatening that I have not definitively ruled out at this point. Her also understands this. They are both comfortable going home and that is their desire I encouraged them that she is welcome to come back at any point if she changes her mind and in fact if she continues to have symptoms beyond 12 to 24 hours I encouraged her to come back regardless. She understands all of this and she was discharged in a guarded condition. Critical Care Critical Care Time Critical Care Time: Yes Attestation: On 02/12/24, the high probability of a clinically significant, sudden or life threatening deterioration of the following system(s) required my full and direct attention, intervention and personal management. The time I documented below is in addition to time spent performing reported procedures but includes the following listed in this critical care notation. Total Time Total Critical Care Time: 35
[2024-02-12 19:20] LABS: Microscopic, Urine URINE MICROSCOPIC (MICROSCOPIC)
[2024-02-12 19:23] LABS: Appearance,Urine CLEAR (Clear); Bilirubin,Urine Negative (Negative); Blood, Urine Negative (Negative); Color,Urine YELLOW (Yellow); Glucose,Urine (UA) Negative (Negative); Ketones,Urine Negative (Negative); Leukocyte Esterase,Urine TRACE (Negative); Nitrate,Urine Negative (Negative); Protein,Urine TRACE (Negative); Specific Gravity, Urine >= 1.030 (1.005-1.030); Urobilinogen,Urine 0.2 EU/dl (0.2)
[2024-02-12 19:23] LABS: Basophils # 0.1 K/mm3 (0-0.2); Basophils % 0.8 % (0.1-2.0); Eosinophils # 0.1 K/mm3 (0.0-0.4); Eosinophils % 1.5 % (0.1-12.0); Hematocrit 40.3 % (37.0-47.0); Hemoglobin 13.5 g/dL (12.2-16.2); Lymphocytes # 2.2 K/mm3 (0.7-4.5); Mean Corpuscular HGB Conc 33.5 g/dL (31.8-35.4); Mean Corpuscular Volume 92.6 fl (81-99); Mean Platelet Volume 7.9 fl (7.4-10.4); Monocytes # 0.4 K/mm3 (0.1-1.0); Monocytes % 4.3 % (1.7-9.3); Neutrophils # 6.2 K/mm3 (1.8-7.8); Neutrophils % 68.4 % (37.0-80.0); Platelet Count 317 K/mm3 (142-424); Red Blood Count 4.36 M/mm3 (4.20-5.40); Red Cell Distribution Width 13.7 % (11.5-17.5)
[2024-02-12 19:26] LABS: Chloride 103 mmol/L (98-107); Potassium 3.8 mmoL/L (3.5-5.1); Sodium 138 mmol/L (136-145)
[2024-02-12 19:29] LABS: Alanine Aminotransferase 21 U/L (12-78); Albumin Level 4.4 g/dl (3.5-5.0); Albumin/Globulin Ratio 1.3 (1.1-1.8); Alkaline Phosphatase 125 U/L (38-126); Anion Gap 10.8 mEq/L (5-15); Aspartate Amino Transferase 31 U/L (14-36); Bilirubin,Total 0.5 mg/dl (0.2-1.3); Blood Urea Nitrogen 26 mg/dl (7-17); Carbon Dioxide 28 mmol/L (22.0-30.0); Creatinine Clearance Estimated 71 mL/min (50-200); Estimated Glomerular Filt Rate 57 ml/min (>60); GFR (African American) 68 ML/MIN (>60); Globulin 3.5 g/dL (1.3-3.2); Total Protein,Serum 7.9 g/dl (6.3-8.2)
[2024-02-12 19:30] LABS: Calcium 9.5 mg/dl (8.4-10.2); Glucose 120 mg/dl (74-100)
[2024-02-12 19:35] LABS: RBC,Urine Occasional #/hpf (0-3); WBC,Urine Occasional #/hpf (0-3)
[2024-02-12] MEDS: LACTATED RINGERS 1000ML 1,000 ML 999 ML IV (19:43)
[2024-02-12] MEDS: KETOROLAC 30MG/ML VIAL 15 MG IV (19:43)
[2024-02-12] MEDS: ONDANSETRON 4MG/2ML VIAL 4 MG IV (19:44)
[2024-02-12] MEDS: MORPHINE 4MG/ML SYRINGE 4 MG IV (19:44)
[2024-02-12 21:04] VITALS: BP 164/84; PULSE 79; RESP 18; TEMP 36.8; O2SAT 99
== END 2024-02-12 21:10 | disposition home or self-care (01) ==
PROVIDERS: Emergency Provider Student in an Organized Health Care Education/Training Program; PCP Nurse Practitioner Family
DX: R10.32 Left lower quadrant pain (principal); M54.59 Other low back pain
CPT/HCPCS: 74176; 80053; 81001; 85025; 96361; 96374; 96375; 99285; J1885; J2270; J2405; J7120

== ENCOUNTER 2024-02-15 09:42 | Outpatient (CLI) | payer MEDICARE, SELFPAY ==
[2024-02-15 10:12] LABS: Basophils # 0.2 K/mm3 (0-0.2); Basophils % 3.1 % (0.1-2.0); Eosinophils # 0.1 K/mm3 (0.0-0.4); Eosinophils % 1.9 % (0.1-12.0); Hematocrit 40.2 % (37.0-47.0); Hemoglobin 13.4 g/dL (12.2-16.2); Lymphocytes # 1.2 K/mm3 (0.7-4.5); Lymphocytes % 21.2 % (10-50); Mean Corpuscular HGB Conc 33.3 g/dL (31.8-35.4); Mean Corpuscular Volume 93.2 fl (81-99); Monocytes # 0.3 K/mm3 (0.1-1.0); Monocytes % 5.7 % (1.7-9.3); Neutrophils # 3.7 K/mm3 (1.8-7.8); Neutrophils % 68.2 % (37.0-80.0); Platelet Count 285 K/mm3 (142-424); Red Blood Count 4.31 M/mm3 (4.20-5.40); Red Cell Distribution Width 13.6 % (11.5-17.5); White Blood Count 5.5 K/mm3 (4.8-10.8)
[2024-02-15 10:52] LABS: Alanine Aminotransferase 18 U/L (12-78); Albumin Level 3.9 g/dl (3.5-5.0); Albumin/Globulin Ratio 1.4 (1.1-1.8); Alkaline Phosphatase 103 U/L (38-126); Amylase 65 U/L (30-110); Anion Gap 9.9 mEq/L (5-15); Aspartate Amino Transferase 25 U/L (14-36); Bilirubin,Total 0.3 mg/dl (0.2-1.3); Blood Urea Nitrogen 15 mg/dl (7-17); Calcium 9.5 mg/dl (8.4-10.2); Carbon Dioxide 30 mmol/L (22.0-30.0); Chloride 105 mmol/L (98-107); Estimated Glomerular Filt Rate 64 ml/min (>60); GFR (African American) 77 ML/MIN (>60); Globulin 2.8 g/dL (1.3-3.2); Glucose 114 mg/dl (74-100); Lipase 45 U/L (23-300); Potassium 4.9 mmoL/L (3.5-5.1); Sodium 140 mmol/L (136-145); Total Protein,Serum 6.7 g/dl (6.3-8.2)
== END 2024-02-15 23:59 | disposition home or self-care (01) ==
LOC: LAB 09:44
PROVIDERS: PCP Nurse Practitioner Family; Visit Provider Nurse Practitioner Family
DX: R10.12 Left upper quadrant pain (principal)
CPT/HCPCS: 36415; 80053; 82150; 83690; 85025